=== PATIENT | female | born 1970 | race Caucasian/White ===

== ENCOUNTER 2023-01-07 07:39 | Emergency (ER) | payer BC, SELFPAY ==
[2023-01-07 07:40] VITALS: BP 152/93; PULSE 72; RESP 18; TEMP 36.7; O2SAT 100; BMI 20.5
[2023-01-07 08:00] VITALS: BP 162/68; PULSE 87; O2SAT 100
--- NOTE | 2023-01-07 08:18 | [facility].EDGENADL ---
Discharge Plan Disposition Patient Disposition: Home, Self-Care Chief Complaint: Skin/Abscess/Foreign Body Referrals Follow up/Referrals: Maryam York MD [Primary Care Provider] - See instructions Activity Restrictions/Add. Instructions Additional Instructions/Restrictions: Follow-up with general surgery on Monday, 01/09. Call the clinic, they said they will be able to work you in. Today, ultrasound demonstrated large hematoma extending from nipple to right, upper, outer breast. Small amount of free fluid without blood flow deep to hematoma. Associated firmness/induration, tenderness but no warmth, redness, or other signs of infection. Wear tight fitting bra and apply warm compress. Do not remove dressing until following up with surgery. If you have any other concerning signs or symptoms, return to our emergency department or [facility] emergency department for further evaluation. Clinical Impressions Clinical Impression: Postoperative hematoma Qualifiers: Surgical complication system/body Area: subcutaneous tissue Procedure type: non-dermatologic Qualified Code(s): L76.32 - Postprocedural hematoma of skin and subcutaneous tissue following other procedure Instructions Patient Instructions: DI for Skin Abscess Discharge ED Provider: Gabo Shelby General Adult HPI General Chief complaint: Skin/Abscess/Foreign Body Stated complaint: Post surgery bleeding, breast Time Seen by Provider: 01/07/23 07:48 Mode of Arrival: Ambulatory Source of Information: Patient Limitations: No Limitations Description of Symptoms (Recalled from ER Triage Doc. by RN): Patient reports having a lumpectomy on 12/30 and this morning the incision began to bleed. Per her surgeon it may be a hematoma but wanted her to come get it checked out. History of Present Illness HPI narrative: Is a 52-year-old female with history of hypertension, recent lumpectomy on 12/30 at [facility] presenting with bleeding. Patient states that she started feeling a pulling sensation, in her right outer breast over the past 2 days. Got worse yesterday. Today, she put her bra on and felt a leaking sensation, looked down and realized there was blood all over her shirt, bra, and on the floor. Tried to hold pressure, but continued to bleed, so called surgeon on-call. Surgeon on-call recommended she come to the nearest emergency department for evaluation. Denies fevers, chills, red streaking around the area, systemic signs or symptoms, or any other concerns. Also denies trauma to the area. Pain is moderate in intensity when not applying pressure, moderate to severe when applying pressure. Patient has never seen pulsatile bleed. Related Data Allergies Allergy/AdvReac Type Severity Reaction Status Date / Time No Known Allergies Allergy Verified 01/07/23 08:38 [facility] Disclaimer: The information contained in this section may have been updated after the patient was seen, as this information can be updated by other users. Social History Smoking Status: Never smoker alcohol intake: never current occupational status: unemployed Travel in the last 8 weeks: None ROS Obtained: Yes All systems reviewed & no additional complaints except as documented Physical Exam General General appearance: alert, in no apparent distress and other ( ) Head Head exam: atraumatic and normocephalic Eye Eye exam: Present normal appearance, PERRL and EOMI ENT ENT exam: Present mucous membranes moist Neck Neck exam: Present normal inspection, full ROM and trachea midline Chest Chest inspection: Present other (Right breast tender, firm/indurated, but not erythematous. Induration primarily around nipple line, but extends to right, upper outer breast toward axilla. Small amount of dark red blood at previous incision site.) Respiratory Respiratory exam: Absent respiratory distress, wheezes, stridor, accessory muscle use or prolonged expiratory phase Cardiovascular Cardiovascular
[2023-01-07 08:30] VITALS: BP 143/73; PULSE 81; O2SAT 100
--- NOTE | 2023-01-07 08:34 | PC.NURSE ---
Called [facility] to have salon coordinator surgeon paged.
[2023-01-07 09:00] VITALS: BP 141/73; PULSE 72; O2SAT 100
--- NOTE | 2023-01-07 09:09 | PC.NURSE ---
ER MD Shelby speaking with surgery warehouse person [employer] at this time
[2023-01-07 09:30] VITALS: BP 138/72; PULSE 74; RESP 18; O2SAT 100
[2023-01-07 09:34] VITALS: BP 138/72; PULSE 69; RESP 18; TEMP 36.8; O2SAT 100
== END 2023-01-07 09:37 | disposition home or self-care (01) ==
PROVIDERS: Emergency Provider Emergency Medicine; PCP Family Medicine
DX: L76.32 Postprocedural hematoma of skin and subcutaneous tissue following other procedure (principal); I10 Essential (primary) hypertension; Y83.6 Removal of other organ (partial) (total) as the cause of abnormal reaction of the patient, or of later complication, without mention of misadventure at the time of the procedure
CPT/HCPCS: 99284